=== PATIENT | female | born 2005 | race Hispanic/Latino ===

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

== ENCOUNTER 2025-05-13 11:46 | Emergency (ER) | payer MEDICARE, OTHER ==
[2025-05-13] MEDS ORDERED: Ondansetron PF 4 MG/2 ML Vial ONE (12:20)
[2025-05-13 12:26] LABS: #Eosinophils 0.45 10x3/uL (0.0-0.7); #Monocytes 0.72 10x3/uL (0.11-0.59); #Neutrophils 2.18 10x3/uL (1.40-6.50); %Basophils 1.6 % (0.0-1.0); %Eosinophils 7.3 % (0.0-10.0); %Lymphocytes 43.6 % (28.0-48.0); %Monocytes 11.7 % (0.0-4.0); %Neutrophils 35.5 % (31.0-61.0); Hematocrit 38.9 % (36.0-47.0); Hemoglobin 12.3 g/dL (12.0-16.0); Mean Corpuscular HGB CONC 31.6 g/dL (32.0-36.0); Mean Corpuscular Hemoglobin 33.3 pg (25.0-35.0); Mean Corpuscular Volume 105.4 fL (78.0-98.0); Mean Platelet Volume 10.1 fL (7.4-10.4); Platelet Count 187 10x3/uL (130-400); RBC Distribution Width 13.3 % (11.5-14.5); Red Blood Cell (RBC) Count 3.69 mill/uL (4.00-5.20); White Blood Cell (WBC) Count 6.15 10x3/uL (4.8-10.8)
[2025-05-13 12:43] LABS: ALT (SGPT) 63 U/L (Less than 34); AST (SGOT) 55 U/L (11-34); Alkaline Phosphatase 73 U/L (40-100); Anion Gap 20 mmol/L (10-20); BUN (Urea Nitrogen) 28 mg/dL (7.0-18.7); Bilirubin, Total 0.4 mg/dL (0.3-1.2); Calc. Creatinine Clearance 0 mL/min (70-130); Carbon Dioxide 25 mmol/L (22-29); Chloride 98 mmol/L (98-107); Estimated GFR 7; Globulin 4.3 g/dL (2.4-3.5); Glucose 72 mg/dL (70-105); Magnesium 2.4 mg/dL (1.7-2.2); Potassium 4.1 mmol/L (3.5-5.1); Protein, Total 8.3 g/dL (6.0-8.3); Sodium 139 mmol/L (136-145)
[2025-05-13 12:46] LABS: Troponin I 0.033 ng/mL (< 0.028)
== END 2025-05-13 14:02 | disposition home or self-care (01) ==
LOC: ERS 11:46
DX: I12.9 Hypertensive chronic kidney disease with stage 1 through stage 4 chronic kidney disease, or unspecified chronic kidney disease (principal); N18.9 Chronic kidney disease, unspecified; R11.2 Nausea with vomiting, unspecified; R29.700 NIHSS score 0; Z99.2 Dependence on renal dialysis; Z94.0 Kidney transplant status
CPT/HCPCS: 71045; 83690; 83735; 83880; 84484; 86850; 86900; 86901; 93005; 96374; 99285; J2405; 80053; 84443; 85025

== ENCOUNTER 2025-07-14 15:27 | Emergency (ER) | payer MEDICARE, OTHER ==
[2025-07-14 17:27] LABS: #Basophils 0.06 10x3/uL (0.0-0.2); #Eosinophils 0.11 10x3/uL (0.0-0.7); #Monocytes 0.46 10x3/uL (0.11-0.59); #Neutrophils 3.27 10x3/uL (1.40-6.50); %Basophils 1.0 % (0.0-1.0); %Eosinophils 1.8 % (0.0-10.0); %Lymphocytes 36.5 % (21.0-51.0); %Monocytes 7.4 % (0.0-10.0); %Neutrophils 52.8 % (42.0-75.0); Hematocrit 30.9 % (36.0-47.0); Hemoglobin 9.7 g/dL (12.0-16.0); Mean Corpuscular Hemoglobin 32.6 pg (27.0-31.0); Mean Corpuscular Volume 103.7 fL (78.0-98.0); Platelet Count 180 10x3/uL (130-400); Red Blood Cell (RBC) Count 2.98 mill/uL (4.20-5.40); White Blood Cell (WBC) Count 6.19 10x3/uL (4.8-10.8)
[2025-07-14 17:38] LABS: INR-International Normal Ratio 1.1; PTT 41.1 sec (22.9-36.1); Prothrombin Time 14.3 sec (12.0-14.7)
[2025-07-14 17:39] LABS: ALT (SGPT) Less than 7 U/L (Less than 34); AST (SGOT) 14 U/L (11-34); Albumin 4.1 g/dL (3.1-4.5); Alkaline Phosphatase 42 U/L (40-110); Anion Gap 22 mmol/L (10-20); BUN (Urea Nitrogen) 55 mg/dL (7.0-18.7); Bilirubin, Total 0.3 mg/dL (0.3-1.2); Calc. Creatinine Clearance 0 mL/min (70-130); Calcium 7.6 mg/dL (7.8-10.44); Carbon Dioxide 20 mmol/L (22-29); Chloride 101 mmol/L (98-107); Globulin 3.3 g/dL (2.4-3.5); Glucose 82 mg/dL (70-105); Potassium 5.4 mmol/L (3.5-5.1); Sodium 138 mmol/L (136-145)
[2025-07-14 17:45] LABS: BHCG - Serum Negative (NEGATIVE); Pregs Control Background? CLEAR/WHITE (CLR/WHITE); Pregs Control Bar Appear? YES (CONTROL BAR)
== END 2025-07-14 18:37 | disposition home or self-care (01) ==
LOC: ERS 15:27
DX: H66.93 Otitis media, unspecified, bilateral (principal); H92.23 Otorrhagia, bilateral; N18.5 Chronic kidney disease, stage 5
CPT/HCPCS: 36415; 70450; 70480; 80053; 84703; 85025; 85610; 85730

== ENCOUNTER 2025-10-15 12:27 | Inpatient (IN) | payer MEDICARE, OTHER ==
[2025-10-15 13:49] LABS: #Basophils 0.11 10x3/uL (0.0-0.2); #Eosinophils 0.15 10x3/uL (0.0-0.7); #Monocytes 0.37 10x3/uL (0.11-0.59); #Neutrophils 3.53 10x3/uL (1.40-6.50); %Basophils 1.7 % (0.0-1.0); %Eosinophils 2.3 % (0.0-10.0); %Lymphocytes 34.9 % (21.0-51.0); %Monocytes 5.8 % (0.0-10.0); %Neutrophils 55.1 % (42.0-75.0); Hematocrit 39.8 % (36.0-47.0); Hemoglobin 12.4 g/dL (12.0-16.0); Mean Corpuscular Hemoglobin 32.0 pg (27.0-31.0); Mean Corpuscular Volume 102.6 fL (78.0-98.0); Platelet Count 204 10x3/uL (130-400); Red Blood Cell (RBC) Count 3.88 mill/uL (4.20-5.40); White Blood Cell (WBC) Count 6.41 10x3/uL (4.8-10.8)
[2025-10-15 14:19] LABS: ALT (SGPT) 13 U/L (Less than 34); AST (SGOT) 27 U/L (11-34); Albumin 4.0 g/dL (3.1-4.5); Alkaline Phosphatase 61 U/L (40-110); Anion Gap 29 mmol/L (10-20); BUN (Urea Nitrogen) 78 mg/dL (7.0-18.7); Bilirubin, Total 0.3 mg/dL (0.3-1.2); Calc. Creatinine Clearance 0 mL/min (70-130); Calcium 7.2 mg/dL (7.8-10.44); Carbon Dioxide 18 mmol/L (22-29); Chloride 98 mmol/L (98-107); Globulin 3.5 g/dL (2.4-3.5); Glucose 94 mg/dL (70-105); Potassium 6.4 mmol/L (3.5-5.1); Sodium 139 mmol/L (136-145)
[2025-10-15] MEDS ORDERED: Acetaminophen 500 MG TAB ONE (14:43)
[2025-10-15] MEDS ORDERED: diphenhydrAMINE 50 MG/ML VIAL ONE (14:44)
[2025-10-15] MEDS ORDERED: Dextrose 50% Abboject 50 ML SYRINGE ONE ×2 (14:53→16:03)
[2025-10-15] MEDS ORDERED: CALCIUM GLUC 1 GM/NS 50 ML IV Bag ONE (14:55)
[2025-10-15] MEDS ORDERED: Lactulose 20 GM (30 mL) UDCUP ONE (16:08)
[2025-10-15 16:12] LABS: Magnesium 2.7 mg/dL (1.6-2.6)
[2025-10-15] MEDS ORDERED: Ondansetron PF 4 MG/2 ML Vial ONE (16:14)
[2025-10-15] MEDS ORDERED: Glucagon 1 MG/ML KIT IM PRN (16:22)
[2025-10-15] MEDS: LOKELMA 10 GM PACKET PO SCH ×2 (17:55→21:41)
[2025-10-15 17:59] VITALS: BMI 37.2
[2025-10-15 19:50] LABS: Glucose POC Confirmation 75 mg/dL (70-105)
[2025-10-15 19:54] LABS: Potassium 6.8 mmol/L (3.5-5.1)
[2025-10-15] MEDS: NIFEdipine XL 60 MG ER.TAB PO SCH (20:32)
[2025-10-15] MEDS: cloNIDine 0.1 MG TAB PO SCH (20:33)
[2025-10-15] MEDS: Albuterol 2.5 MG (3 mL) NEB NEB SCH ×2 (20:34→20:38)
[2025-10-15 20:56] LABS: Anion Gap 29 mmol/L (10-20); BUN (Urea Nitrogen) 80 mg/dL (7.0-18.7); Calc. Creatinine Clearance 9 mL/min (70-130); Calcium 7.4 mg/dL (7.8-10.44); Carbon Dioxide 19 mmol/L (22-29); Chloride 100 mmol/L (98-107); Glucose 108 mg/dL (70-105); Potassium 6.8 mmol/L (3.5-5.1); Sodium 141 mmol/L (136-145)
[2025-10-15] MEDS: Dextrose 50% Abboject 50 ML SYRINGE SLOW IVP PRN (21:26)
[2025-10-16 00:23] LABS: Potassium 4.1 mmol/L (3.5-5.1)
[2025-10-16 04:41] LABS: #Basophils 0.05 10x3/uL (0.0-0.2); #Eosinophils 0.07 10x3/uL (0.0-0.7); #Monocytes 0.59 10x3/uL (0.11-0.59); #Neutrophils 5.26 10x3/uL (1.40-6.50); %Basophils 0.6 % (0.0-1.0); %Eosinophils 0.8 % (0.0-10.0); %Lymphocytes 27.4 % (21.0-51.0); %Monocytes 7.1 % (0.0-10.0); %Neutrophils 63.7 % (42.0-75.0); Hematocrit 35.1 % (36.0-47.0); Hemoglobin 11.5 g/dL (12.0-16.0); Mean Corpuscular Hemoglobin 33.1 pg (27.0-31.0); Mean Corpuscular Volume 101.2 fL (78.0-98.0); Platelet Count 179 10x3/uL (130-400); Red Blood Cell (RBC) Count 3.47 mill/uL (4.20-5.40); White Blood Cell (WBC) Count 8.27 10x3/uL (4.8-10.8)
[2025-10-16 04:47] LABS: INR-International Normal Ratio 1.0; Prothrombin Time 13.3 sec (12.0-14.7)
[2025-10-16 04:48] LABS: PTT 36.1 sec (22.9-36.1)
[2025-10-16] MEDS: Acetaminophen 325 MG TAB PO PRN (08:24)
[2025-10-16 10:32] LABS: Anion Gap 27 mmol/L (10-20); BUN (Urea Nitrogen) 84 mg/dL (7.0-18.7); Calc. Creatinine Clearance 8 mL/min (70-130); Calcium 7.0 mg/dL (7.8-10.44); Carbon Dioxide 21 mmol/L (22-29); Chloride 96 mmol/L (98-107); Glucose 106 mg/dL (70-105); Potassium 4.9 mmol/L (3.5-5.1); Sodium 139 mmol/L (136-145)
[2025-10-16 10:54] LABS: HBSAB Concentration 15.42 mIU/mL; Hep B Core Total Ab NONREACTIVE (NonReactive); Hep B Core Total Index 0.12 S/CO (0-0.79); Hep B Surf Ag NONREACTIVE S/CO (NonReactive); Hep C IgG Ab NONREACTIVE S/CO (NonReactive); Hep C Index 0.11 S/CO (0-0.79)
[2025-10-16] MEDS: LOKELMA 10 GM PACKET PO SCH (17:16)
[2025-10-16] MEDS: Pantoprazole 40 MG DR.TAB PO SCH (18:08)
[2025-10-17 04:02] LABS: #Basophils 0.05 10x3/uL (0.0-0.2); #Eosinophils 0.13 10x3/uL (0.0-0.7); #Monocytes 0.51 10x3/uL (0.11-0.59); #Neutrophils 3.59 10x3/uL (1.40-6.50); %Basophils 0.7 % (0.0-1.0); %Eosinophils 1.9 % (0.0-10.0); %Lymphocytes 36.1 % (21.0-51.0); %Monocytes 7.6 % (0.0-10.0); %Neutrophils 53.6 % (42.0-75.0); Hematocrit 32.8 % (36.0-47.0); Hemoglobin 10.7 g/dL (12.0-16.0); Mean Corpuscular Hemoglobin 32.4 pg (27.0-31.0); Mean Corpuscular Volume 99.4 fL (78.0-98.0); Platelet Count 166 10x3/uL (130-400); Red Blood Cell (RBC) Count 3.30 mill/uL (4.20-5.40); White Blood Cell (WBC) Count 6.71 10x3/uL (4.8-10.8)
[2025-10-17 04:29] LABS: Anion Gap 33 mmol/L (10-20); BUN (Urea Nitrogen) 92 mg/dL (7.0-18.7); Calc. Creatinine Clearance 7 mL/min (70-130); Calcium 7.4 mg/dL (7.8-10.44); Carbon Dioxide 15 mmol/L (22-29); Chloride 95 mmol/L (98-107); Glucose 88 mg/dL (70-105); Magnesium 2.5 mg/dL (1.6-2.6); Potassium 5.0 mmol/L (3.5-5.1); Sodium 138 mmol/L (136-145)
[2025-10-17] MEDS: cloNIDine 0.1 MG TAB PO SCH (05:06)
[2025-10-17] MEDS ORDERED: Clindamycin/D5W 600 MG in Premix 1 BAG IVPB SCH (08:00)
[2025-10-17] MEDS ORDERED: fentaNYL PF 100 MCG/2 ML SYRINGE ONE ×2 (08:49→10:13)
[2025-10-17] MEDS ORDERED: Ondansetron PF 4 MG/2 ML Vial ONE (08:49)
[2025-10-17] MEDS ORDERED: Lidocaine 1% PF 5 ML VIAL ONE (08:49)
[2025-10-17] MEDS ORDERED: Heparin 10,000 UNITS/ 10 ML VIAL ONE (08:50)
[2025-10-17] MEDS ORDERED: Glycopyrrolate 0.2 MG/ML 5 ML SYRINGE ONE (08:53)
[2025-10-17] MEDS ORDERED: Albuterol HFA (OR) 200 PUFF INH ONE (09:30)
[2025-10-17] MEDS ORDERED: PROPOFOL 200 MG/20 ML VIAL ONE (09:30)
[2025-10-17] MEDS: Pantoprazole 40 MG DR.TAB PO SCH ×2 (11:34→20:16)
[2025-10-17] MEDS: Activase 2 MG VIAL CATH SCH (17:01)
[2025-10-17] MEDS: Clindamycin/D5W 600 MG in Premix 1 BAG IVPB SCH (17:39)
[2025-10-19] MEDS: Sodium Bicarbonate Tab 325 MG TAB PO SCH (10:06)
[2025-10-19 10:09] LABS: #Basophils 0.08 10x3/uL (0.0-0.2); #Eosinophils 0.17 10x3/uL (0.0-0.7); #Monocytes 0.64 10x3/uL (0.11-0.59); #Neutrophils 4.15 10x3/uL (1.40-6.50); %Basophils 1.1 % (0.0-1.0); %Eosinophils 2.3 % (0.0-10.0); %Lymphocytes 31.5 % (21.0-51.0); %Monocytes 8.5 % (0.0-10.0); %Neutrophils 55.1 % (42.0-75.0); Hematocrit 33.5 % (36.0-47.0); Hemoglobin 10.5 g/dL (12.0-16.0); Mean Corpuscular Hemoglobin 32.7 pg (27.0-31.0); Mean Corpuscular Volume 104.4 fL (78.0-98.0); Platelet Count 146 10x3/uL (130-400); Red Blood Cell (RBC) Count 3.21 mill/uL (4.20-5.40); White Blood Cell (WBC) Count 7.52 10x3/uL (4.8-10.8)
[2025-10-19 11:11] LABS: Anion Gap 25 mmol/L (10-20); BUN (Urea Nitrogen) 78 mg/dL (7.0-18.7); Calc. Creatinine Clearance 8 mL/min (70-130); Calcium 7.7 mg/dL (7.8-10.44); Carbon Dioxide 20 mmol/L (22-29); Chloride 104 mmol/L (98-107); Glucose 77 mg/dL (70-105); Potassium 6.4 mmol/L (3.5-5.1); Sodium 143 mmol/L (136-145)
[2025-10-19] MEDS: LOKELMA 10 GM PACKET PO SCH (13:34)
[2025-10-19] MEDS: Lactulose 20 GM (30 mL) UDCUP PO SCH (13:35)
[2025-10-19] MEDS: Dextrose 50% Abboject 50 ML SYRINGE SLOW IVP SCH (13:38)
[2025-10-19] MEDS ORDERED: Lidocaine 1% (PF) 30 ML VIAL ONE (14:37)
[2025-10-19] MEDS ORDERED: Heparin 10,000 UNITS/ 10 ML VIAL ONE (14:37)
[2025-10-19] MEDS ORDERED: Dextrose 50% Abboject 50 ML SYRINGE ONE ×3 (15:54→18:34)
[2025-10-19 16:14] LABS: Potassium 4.3 mmol/L (3.5-5.1)
[2025-10-19] MEDS ORDERED: Lidocaine 1% PF 5 ML VIAL ONE (18:55)
[2025-10-19] MEDS ORDERED: CEFAZOLIN 1 GM VIAL ONE (19:47)
[2025-10-20] MEDS: Heparin 10,000 UNITS/ 10 ML VIAL CATH SCH (03:03)
[2025-10-20] MEDS: HYDROcodone/Acetaminophen 10/325 mg Tablet PO SCH (06:33)
[2025-10-20 08:24] LABS: #Basophils 0.08 10x3/uL (0.0-0.2); #Eosinophils 0.24 10x3/uL (0.0-0.7); #Monocytes 0.56 10x3/uL (0.11-0.59); #Neutrophils 7.41 10x3/uL (1.40-6.50); %Basophils 0.8 % (0.0-1.0); %Eosinophils 2.5 % (0.0-10.0); %Lymphocytes 12.6 % (21.0-51.0); %Monocytes 5.9 % (0.0-10.0); %Neutrophils 77.8 % (42.0-75.0); Hematocrit 32.6 % (36.0-47.0); Hemoglobin 10.5 g/dL (12.0-16.0); Mean Corpuscular Hemoglobin 32.8 pg (27.0-31.0); Mean Corpuscular Volume 101.9 fL (78.0-98.0); Platelet Count 165 10x3/uL (130-400); Red Blood Cell (RBC) Count 3.20 mill/uL (4.20-5.40); White Blood Cell (WBC) Count 9.53 10x3/uL (4.8-10.8)
[2025-10-20 08:43] LABS: Anion Gap 22 mmol/L (10-20); BUN (Urea Nitrogen) 38 mg/dL (7.0-18.7); Calc. Creatinine Clearance 14 mL/min (70-130); Calcium 7.9 mg/dL (7.8-10.44); Carbon Dioxide 24 mmol/L (22-29); Chloride 102 mmol/L (98-107); Glucose 118 mg/dL (70-105); Potassium 4.0 mmol/L (3.5-5.1); Sodium 144 mmol/L (136-145)
[2025-10-20] MEDS ORDERED: cloNIDine 0.1 MG TAB PO PRN (10:10)
[2025-10-20 11:24] VITALS: BMI 37.2
[2025-10-20 12:19] VITALS: TEMP 98.4
[2025-10-20] MEDS: Mupirocin 1 GM TUBE TP SCH (13:18)
[2025-10-20 15:29] VITALS: BP 158/87
== END 2025-10-20 17:00 | disposition home or self-care (01) | DRG 673 ==
LOC: ERS 12:27 → SUATTDRO 12:27 → 2SE 17:17 → OBSVTOIN 17:17
PROVIDERS: ADMIT Family Medicine; ATTEND Internal Medicine
PROC: 0JH63XZ Insertion of Tunneled Vascular Access Device into Chest Subcutaneous Tissue and Fascia, Percutaneous Approach (ICD-10-PCS; 2025-10-17)
PROC: 02H633Z Insertion of Infusion Device into Right Atrium, Percutaneous Approach (ICD-10-PCS; 2025-10-17)
PROC: B548ZZA Ultrasonography of Superior Vena Cava, Guidance (ICD-10-PCS; 2025-10-17)
PROC: 3E03317 Introduction of Other Thrombolytic into Peripheral Vein, Percutaneous Approach (ICD-10-PCS; 2025-10-17)
PROC: 0JH63XZ Insertion of Tunneled Vascular Access Device into Chest Subcutaneous Tissue and Fascia, Percutaneous Approach (ICD-10-PCS; principal; 2025-10-19)
PROC: 0JPV3XZ Removal of Tunneled Vascular Access Device from Upper Extremity Subcutaneous Tissue and Fascia, Percutaneous Approach (ICD-10-PCS; 2025-10-19)
PROC: 02PY33Z Removal of Infusion Device from Great Vessel, Percutaneous Approach (ICD-10-PCS; 2025-10-19)
PROC: 02HV33Z Insertion of Infusion Device into Superior Vena Cava, Percutaneous Approach (ICD-10-PCS; 2025-10-19)
PROC: B5181ZA Fluoroscopy of Superior Vena Cava using Low Osmolar Contrast, Guidance (ICD-10-PCS; 2025-10-19)
DX: T82.41XA Breakdown (mechanical) of vascular dialysis catheter, initial encounter (principal); G93.41 Metabolic encephalopathy; N18.6 End stage renal disease; Z88.1 Allergy status to other antibiotic agents; Z88.0 Allergy status to penicillin; Z88.2 Allergy status to sulfonamides; Z88.8 Allergy status to other drugs, medicaments and biological substances; Z98.890 Other specified postprocedural states; F41.9 Anxiety disorder, unspecified; F32.A Depression, unspecified; Z99.2 Dependence on renal dialysis; N26.9 Renal sclerosis, unspecified; E87.5 Hyperkalemia; E16.2 Hypoglycemia, unspecified; E83.51 Hypocalcemia; D64.9 Anemia, unspecified; I10 Essential (primary) hypertension; Z79.899 Other long term (current) drug therapy
CPT/HCPCS: 36415; 36416; 71045; 80048; 80053; 83735; 85025; 85610; 85730; 86704; 86706; 86803; 86850; 86900; 86901; 87340; 90935; 93005; 93010; 94640; 96365; 96375; 96376; C1750; C1769; C1894; G0257; J0613; J0690; J1100; J1200; J1642; J1644; J1815; J2003; J2250; J2405; J2704; J2997; J3010; J3490; J7611; J7999